=== PATIENT | male | born 1965 | race Caucasian/White ===

== ENCOUNTER 2019-02-11 13:44 | Inpatient (IN) | payer MEDICAID, OTHER ==
[2019-02-11] MEDS: HYDROmorphONE 0.5 MG/0.5 ML SYG IV (18:03)
[2019-02-11 18:04] LABS: ADD MAN DIFF? NO
[2019-02-11] MEDS: SOD CHLORIDE 0.9% 1,000 ML IV ×2 (18:04→19:34)
[2019-02-11 18:08] LABS: BASOPHIL # 0.1 10^3/ul (0.0-0.1); BASOPHILS % 0.4 % (0.0-2.0); EOSINOPHILS # 0.1 10^3/ul (0.0-0.5); EOSINOPHILS % 1.1 % (0.0-7.0); HEMATOCRIT 39.1 % (42.0-52.0); HEMOGLOBIN 13.4 g/dl (14.0-18.0); LYMPHOCYTES # 1.5 10^3/ul (0.8-2.9); LYMPHOCYTES % 12.5 % (15.0-51.0); MEAN CORPUSCULAR HEMOGLOBIN 31.2 pg (29.0-33.0); MEAN CORPUSCULAR HGB CONC 34.3 g/dl (32.0-37.0); MEAN CORPUSCULAR VOLUME 90.9 fl (82.0-101.0); MEAN PLATELET VOLUME 9.1 fl (7.4-10.4); MONOCYTE # 1.3 10^3/ul (0.3-0.9); MONOCYTES % 11.5 % (0.0-11.0); NEUTROPHIL # 8.5 10^3/ul (1.6-7.5); NEUTROPHILS % 72.9 % (39.0-77.0); PLATELET COUNT 242 10^3/UL (140-415)
[2019-02-11 18:08] LABS: WHITE BLOOD COUNT 11.7 10^3/ul (4.8-10.8)
[2019-02-11 18:10] LABS: URINE BLOOD (Dip) POC 1+ (NEGATIVE); URINE GLUCOSE (Dip) POC Negative (NEGATIVE); URINE KETONES (Dip) POC Negative (NEGATIVE); URINE LEUKOCYTE EST (Dip) POC Negative (NEGATIVE); URINE NITRITE (Dip) POC Negative (NEGATIVE); URINE TOTAL PROTEIN POC Negative (NEGATIVE)
[2019-02-11 18:28] LABS: ALANINE AMINOTRANSFERASE 105 IU/L (13-69); ALBUMIN 4.1 g/dl (3.3-4.9); ALBUMIN/GLOBULIN RATIO 1.05; ALKALINE PHOSPHATASE 231 IU/L (42-121); ANION GAP 9 (5-13); ASPARTATE AMINO TRANSFERASE 70 IU/L (15-46); BILIRUBIN,INDIRECT 0.6 mg/dl (0-1.1); BILIRUBIN,TOTAL 0.6 mg/dl (0.2-1.3); BLOOD UREA NITROGEN 15 mg/dl (7-20); CALCIUM 9.9 mg/dl (8.4-10.2); CARBON DIOXIDE 27 mmol/L (21-31); CHLORIDE 102 mmol/L (97-110); CREATININE 0.98 mg/dl (0.61-1.24); Estimated GFR > 60 mL/min (>60); GLUCOSE 109 mg/dl (70-220); LIPASE 73 U/L (23-300); POTASSIUM 4.1 mmol/L (3.5-5.1); SODIUM 138 mmol/L (135-144)
[2019-02-11] MEDS: PIPER-TAZO 3.375 GM IV (PMX) 100 ML IVPB ×2 (18:41→23:07)
[2019-02-11] MEDS: ONDANSETRON 4 MG INJ IV (18:41)
[2019-02-11] MEDS ORDERED: NACL 0.9% 3 ML SYG IV (19:00)
[2019-02-11] MEDS: morphine 2 MG INJ IV ×2 (19:34→22:33)
[2019-02-12] MEDS: SOD CHLORIDE 0.9% 1,000 ML IV ×2 (02:38→21:49)
[2019-02-12] MEDS: morphine 4 MG/ML VIAL IV ×4 (02:40→16:41)
[2019-02-12 05:06] LABS: ADD MAN DIFF? NO
[2019-02-12 05:10] LABS: WHITE BLOOD COUNT 9.4 10^3/ul (4.8-10.8)
[2019-02-12 05:10] LABS: BASOPHILS % 0.3 % (0.0-2.0); EOSINOPHILS # 0.2 10^3/ul (0.0-0.5); EOSINOPHILS % 1.8 % (0.0-7.0); HEMATOCRIT 36.7 % (42.0-52.0); HEMOGLOBIN 12.5 g/dl (14.0-18.0); LYMPHOCYTES # 1.5 10^3/ul (0.8-2.9); LYMPHOCYTES % 15.8 % (15.0-51.0); MEAN CORPUSCULAR HEMOGLOBIN 30.6 pg (29.0-33.0); MEAN CORPUSCULAR HGB CONC 34.1 g/dl (32.0-37.0); MEAN PLATELET VOLUME 9.2 fl (7.4-10.4); MONOCYTE # 1.1 10^3/ul (0.3-0.9); MONOCYTES % 11.2 % (0.0-11.0); NEUTROPHIL # 6.5 10^3/ul (1.6-7.5); NEUTROPHILS % 69.2 % (39.0-77.0); PLATELET COUNT 257 10^3/UL (140-415); RED BLOOD COUNT 4.08 10^6/ul (4.70-6.10); RED CELL DISTRIBUTION WIDTH 13.2 % (11.5-14.5)
[2019-02-12] MEDS: PIPER-TAZO 3.375 GM IV (PMX) 100 ML IVPB ×4 (05:28→23:18)
[2019-02-12] MEDS: PANTOPRAZOLE 40 MG INJ IV (05:29)
[2019-02-12 05:31] LABS: ALANINE AMINOTRANSFERASE 104 IU/L (13-69); ALBUMIN 3.6 g/dl (3.3-4.9); ALBUMIN/GLOBULIN RATIO 1.05; ALKALINE PHOSPHATASE 207 IU/L (42-121); ANION GAP 7 (5-13); ASPARTATE AMINO TRANSFERASE 69 IU/L (15-46); BILIRUBIN,INDIRECT 0.6 mg/dl (0-1.1); BILIRUBIN,TOTAL 0.6 mg/dl (0.2-1.3); BLOOD UREA NITROGEN 13 mg/dl (7-20); CALCIUM 9.1 mg/dl (8.4-10.2); CARBON DIOXIDE 28 mmol/L (21-31); CHLORIDE 104 mmol/L (97-110); CHOLESTEROL 162 mg/dl (100-200); Estimated GFR > 60 mL/min (>60); GLUCOSE 102 mg/dl (70-220); HDL CHOLESTEROL 18 mg/dl (28-71); LDL CHOLESTEROL,CALCULATED 77 mg/dl; MAGNESIUM 2.1 mg/dl (1.7-2.5); POTASSIUM 4.5 mmol/L (3.5-5.1); SODIUM 139 mmol/L (135-144); TRIGLYCERIDES 337 mg/dl (0-149)
[2019-02-12] MEDS ORDERED: ETOMIDATE 20 MG INJ (17:59)
[2019-02-12] MEDS ORDERED: FENTAnyl 50 MCG/ML VIAL (17:59)
[2019-02-12] MEDS ORDERED: SUCCINYLCHOLINE CHLORIDE 100 MG/5 ML SYG IV (17:59)
[2019-02-12] MEDS ORDERED: HYDROmorphONE 2 MG/ML SYG (17:59)
[2019-02-12] MEDS ORDERED: ROCURONIUM 50 MG INJ (17:59)
[2019-02-12] MEDS ORDERED: PROPOFOL 200 MG INJ (18:00)
[2019-02-12] MEDS ORDERED: DESFLURANE 15 MIN (18:00)
[2019-02-12] MEDS ORDERED: CEFAZOLIN 1 GM INJ (18:00)
[2019-02-12] MEDS: BUPIVACAINE 0.25%/EPI (SDV) 10 ML INJ (18:24)
[2019-02-12] MEDS: LIDOCAINE 1% (MPF) 30 ML INJ (18:25)
[2019-02-12] MEDS ORDERED: IBUPROFEN 800 MG TAB PO (18:30)
[2019-02-12] MEDS ORDERED: ACETAMINOPHEN 325 MG TAB PO (18:30)
[2019-02-12] MEDS ORDERED: SUGAMMADEX SODIUM 200 MG/2 ML VIAL IV (18:47)
[2019-02-12] MEDS ORDERED: HYDROmorphONE 1 MG/5 ML IV SYRINGE IV ×2 (19:08→19:30)
[2019-02-12] MEDS: HYDROmorphONE 1 MG/5 ML IV SYRINGE IV ×4 (19:25→20:33)
[2019-02-12] MEDS ORDERED: EPHEDrine 25 MG/5 ML SYG IV (19:30)
[2019-02-12] MEDS ORDERED: LABETALOL HCL 20MG INJ IV (19:30)
[2019-02-12] MEDS ORDERED: hydrALAzine 20 MG INJ IV (19:30)
[2019-02-12] MEDS ORDERED: TRIMETHOBENZAMIDE 100 MG/ML VIAL IM (19:30)
[2019-02-12] MEDS ORDERED: FENTAnyl 50 MCG/ML VIAL IV ×2 (19:30)
[2019-02-12] MEDS ORDERED: MIDAZOLAM 1 MG/ML 2 ML INJ IV (19:30)
[2019-02-12] MEDS ORDERED: IPRATROPIUM (NEB) 0.5 MG/2.5 ML AMP HHN (19:30)
[2019-02-12] MEDS ORDERED: DIPHENHYDRAMINE 50 MG INJ IV (19:30)
[2019-02-12] MEDS ORDERED: ONDANSETRON 4 MG INJ IV (19:30)
[2019-02-12] MEDS ORDERED: ALBUTEROL 0.083% (NEB) 2.5 MG/3 ML AMP HHN (19:30)
[2019-02-12] MEDS ORDERED: MEPERIDINE 25 MG INJ IV (19:30)
[2019-02-12] MEDS ORDERED: OXYCODONE/ACETAMINOPHEN (5/325) TAB PO (19:30)
[2019-02-12] MEDS: FENTAnyl 50 MCG/ML VIAL IV ×2 (19:40→19:48)
[2019-02-12] MEDS: OXYCODONE/ACETAMINOPHEN (5/325) TAB PO (20:47)
[2019-02-12] MEDS: HYDROmorphONE 0.5 MG/0.5 ML SYG IV (21:52)
[2019-02-13] MEDS: PIPER-TAZO 3.375 GM IV (PMX) 100 ML IVPB ×4 (05:20→23:29)
[2019-02-13] MEDS: PANTOPRAZOLE 40 MG INJ IV ×2 (05:21→21:03)
[2019-02-13] MEDS: morphine 4 MG/ML VIAL IV ×4 (07:07→23:22)
[2019-02-13] MEDS: HYDROmorphONE 0.5 MG/0.5 ML SYG IV (14:03)
[2019-02-13 15:27] LABS: INR 1.03; PROTIME 13.6 Sec (11.9-14.9); PT RATIO 1.1
[2019-02-13] MEDS: SOD CHLORIDE 0.9% 1,000 ML IV (17:44)
[2019-02-14] MEDS: morphine 4 MG/ML VIAL IV ×4 (06:05→20:00)
[2019-02-14] MEDS: PIPER-TAZO 3.375 GM IV (PMX) 100 ML IVPB ×4 (06:05→23:05)
[2019-02-14 06:19] LABS: ADD MAN DIFF? NO; HAAIG REFLEX REFLEX FILED
[2019-02-14 06:33] LABS: BASOPHIL # 0.1 10^3/ul (0.0-0.1); BASOPHILS % 0.5 % (0.0-2.0); EOSINOPHILS # 0.1 10^3/ul (0.0-0.5); EOSINOPHILS % 1.1 % (0.0-7.0); HEMATOCRIT 39.4 % (42.0-52.0); HEMOGLOBIN 13.3 g/dl (14.0-18.0); LYMPHOCYTES # 1.6 10^3/ul (0.8-2.9); LYMPHOCYTES % 14.8 % (15.0-51.0); MEAN CORPUSCULAR HEMOGLOBIN 31.1 pg (29.0-33.0); MEAN CORPUSCULAR HGB CONC 33.8 g/dl (32.0-37.0); MEAN CORPUSCULAR VOLUME 92.1 fl (82.0-101.0); MEAN PLATELET VOLUME 8.9 fl (7.4-10.4); MONOCYTE # 0.8 10^3/ul (0.3-0.9); MONOCYTES % 7.3 % (0.0-11.0); NEUTROPHIL # 8.1 10^3/ul (1.6-7.5); NEUTROPHILS % 74.9 % (39.0-77.0); PLATELET COUNT 395 10^3/UL (140-415); RED BLOOD COUNT 4.28 10^6/ul (4.70-6.10); RED CELL DISTRIBUTION WIDTH 13.2 % (11.5-14.5)
[2019-02-14 06:33] LABS: WHITE BLOOD COUNT 10.7 10^3/ul (4.8-10.8)
[2019-02-14 06:41] LABS: INR 1.08; PROTIME 14.1 Sec (11.9-14.9); PT RATIO 1.1
[2019-02-14 06:42] LABS: PARTIAL THROMBOPLASTIN TIME 41.2 Sec (23.0-35.0)
[2019-02-14 06:57] LABS: ALANINE AMINOTRANSFERASE 99 IU/L (13-69); ALBUMIN/GLOBULIN RATIO 1.08; ALKALINE PHOSPHATASE 248 IU/L (42-121); ANION GAP 10 (5-13); ASPARTATE AMINO TRANSFERASE 58 IU/L (15-46); BILIRUBIN,INDIRECT 0.9 mg/dl (0-1.1); BILIRUBIN,TOTAL 0.9 mg/dl (0.2-1.3); BLOOD UREA NITROGEN 11 mg/dl (7-20); CALCIUM 9.6 mg/dl (8.4-10.2); CARBON DIOXIDE 29 mmol/L (21-31); CHLORIDE 101 mmol/L (97-110); CREATININE 0.97 mg/dl (0.61-1.24); Estimated GFR > 60 mL/min (>60); GLUCOSE 100 mg/dl (70-220); POTASSIUM 3.6 mmol/L (3.5-5.1); SODIUM 140 mmol/L (135-144); TOTAL PROTEIN 7.7 g/dl (6.1-8.1)
[2019-02-14 07:16] LABS: HEPATITIS B SURFACE ANTIGEN NEGATIVE (NEGATIVE)
[2019-02-14 07:34] LABS: HEPATITIS B CORE ANTIBODY NEGATIVE (NEGATIVE); HEPATITIS C VIRAL ANTIBODY NEGATIVE (NEGATIVE)
[2019-02-14] MEDS: PANTOPRAZOLE 40 MG INJ IV ×2 (08:15→20:00)
[2019-02-14] MEDS: SOD CHLORIDE 0.9% 1,000 ML IV (13:58)
[2019-02-15] MEDS: morphine 4 MG/ML VIAL IV ×4 (02:21→19:38)
[2019-02-15] MEDS: PIPER-TAZO 3.375 GM IV (PMX) 100 ML IVPB ×3 (05:12→17:35)
[2019-02-15 05:28] LABS: ADD MAN DIFF? NO
[2019-02-15 05:37] LABS: WHITE BLOOD COUNT 8.5 10^3/ul (4.8-10.8)
[2019-02-15 05:37] LABS: BASOPHIL # 0.1 10^3/ul (0.0-0.1); BASOPHILS % 0.6 % (0.0-2.0); EOSINOPHILS # 0.3 10^3/ul (0.0-0.5); EOSINOPHILS % 3.8 % (0.0-7.0); HEMATOCRIT 35.7 % (42.0-52.0); HEMOGLOBIN 11.8 g/dl (14.0-18.0); LYMPHOCYTES # 1.6 10^3/ul (0.8-2.9); LYMPHOCYTES % 19.2 % (15.0-51.0); MEAN CORPUSCULAR HEMOGLOBIN 30.3 pg (29.0-33.0); MEAN CORPUSCULAR HGB CONC 33.1 g/dl (32.0-37.0); MEAN CORPUSCULAR VOLUME 91.8 fl (82.0-101.0); MEAN PLATELET VOLUME 8.9 fl (7.4-10.4); MONOCYTE # 0.7 10^3/ul (0.3-0.9); MONOCYTES % 8.4 % (0.0-11.0); NEUTROPHIL # 5.7 10^3/ul (1.6-7.5); NEUTROPHILS % 66.6 % (39.0-77.0); PLATELET COUNT 393 10^3/UL (140-415); RED BLOOD COUNT 3.89 10^6/ul (4.70-6.10); RED CELL DISTRIBUTION WIDTH 13.3 % (11.5-14.5)
[2019-02-15 06:09] LABS: ALANINE AMINOTRANSFERASE 91 IU/L (13-69); ALBUMIN 3.4 g/dl (3.3-4.9); ALBUMIN/GLOBULIN RATIO 1.09; ALKALINE PHOSPHATASE 180 IU/L (42-121); ANION GAP 7 (5-13); ASPARTATE AMINO TRANSFERASE 55 IU/L (15-46); BILIRUBIN,INDIRECT 0.6 mg/dl (0-1.1); BILIRUBIN,TOTAL 0.6 mg/dl (0.2-1.3); BLOOD UREA NITROGEN 10 mg/dl (7-20); CALCIUM 9.2 mg/dl (8.4-10.2); CARBON DIOXIDE 28 mmol/L (21-31); CHLORIDE 103 mmol/L (97-110); CREATININE 0.99 mg/dl (0.61-1.24); Estimated GFR > 60 mL/min (>60); GLUCOSE 97 mg/dl (70-220); POTASSIUM 3.6 mmol/L (3.5-5.1); SODIUM 138 mmol/L (135-144); TOTAL PROTEIN 6.5 g/dl (6.1-8.1)
[2019-02-15] MEDS: PANTOPRAZOLE 40 MG INJ IV ×2 (09:19→20:48)
[2019-02-15] MEDS: BARIUM SULFATE 0.1% 450 ML BTL (VOLUMEN) PO ×2 (09:39)
[2019-02-15] MEDS: SOD CHLORIDE 0.9% 100 ML (11:14)
[2019-02-15] MEDS: IOHEXOL 100 ML (11:14)
[2019-02-15 15:34] LABS: CARCINOEMBRYONIC ANTIGEN 1.5 ng/ml (0.0-5.0)
[2019-02-15 15:38] LABS: CANCER ANTIGEN 19-9 75.2 U/ml (0.0-37.0)
[2019-02-15] MEDS ORDERED: LOPERAMIDE 2 MG CAP PO (18:30)
[2019-02-16] MEDS: PIPER-TAZO 3.375 GM IV (PMX) 100 ML IVPB ×5 (00:02→23:31)
[2019-02-16] MEDS: morphine 4 MG/ML VIAL IV ×3 (02:51→21:04)
[2019-02-16 05:39] LABS: ADD MAN DIFF? NO
[2019-02-16 05:41] LABS: WHITE BLOOD COUNT 7.9 10^3/ul (4.8-10.8)
[2019-02-16 05:41] LABS: BASOPHILS % 0.5 % (0.0-2.0); EOSINOPHILS # 0.3 10^3/ul (0.0-0.5); EOSINOPHILS % 3.2 % (0.0-7.0); HEMATOCRIT 37.5 % (42.0-52.0); HEMOGLOBIN 12.5 g/dl (14.0-18.0); LYMPHOCYTES # 1.5 10^3/ul (0.8-2.9); LYMPHOCYTES % 18.7 % (15.0-51.0); MEAN CORPUSCULAR HEMOGLOBIN 30.5 pg (29.0-33.0); MEAN CORPUSCULAR HGB CONC 33.3 g/dl (32.0-37.0); MEAN CORPUSCULAR VOLUME 91.5 fl (82.0-101.0); MONOCYTE # 0.6 10^3/ul (0.3-0.9); MONOCYTES % 7.5 % (0.0-11.0); NEUTROPHIL # 5.4 10^3/ul (1.6-7.5); NEUTROPHILS % 68.8 % (39.0-77.0); PLATELET COUNT 473 10^3/UL (140-415); RED CELL DISTRIBUTION WIDTH 13.2 % (11.5-14.5)
[2019-02-16 06:08] LABS: ALANINE AMINOTRANSFERASE 78 IU/L (13-69); ALBUMIN 3.6 g/dl (3.3-4.9); ALBUMIN/GLOBULIN RATIO 1.16; ALKALINE PHOSPHATASE 161 IU/L (42-121); ANION GAP 7 (5-13); ASPARTATE AMINO TRANSFERASE 49 IU/L (15-46); BILIRUBIN,INDIRECT 0.6 mg/dl (0-1.1); BILIRUBIN,TOTAL 0.6 mg/dl (0.2-1.3); BLOOD UREA NITROGEN 11 mg/dl (7-20); CALCIUM 9.5 mg/dl (8.4-10.2); CARBON DIOXIDE 30 mmol/L (21-31); CHLORIDE 104 mmol/L (97-110); CREATININE 1.07 mg/dl (0.61-1.24); Estimated GFR > 60 mL/min (>60); GLUCOSE 96 mg/dl (70-220); POTASSIUM 4.2 mmol/L (3.5-5.1); SODIUM 141 mmol/L (135-144); TOTAL PROTEIN 6.7 g/dl (6.1-8.1)
[2019-02-16] MEDS: PANTOPRAZOLE 40 MG INJ IV ×2 (09:23→21:02)
[2019-02-16] MEDS: ONDANSETRON 4 MG INJ IV (13:15)
[2019-02-17] MEDS: PIPER-TAZO 3.375 GM IV (PMX) 100 ML IVPB ×4 (05:37→23:22)
[2019-02-17 06:05] LABS: ADD MAN DIFF? NO
[2019-02-17 06:20] LABS: BASOPHIL # 0.1 10^3/ul (0.0-0.1); BASOPHILS % 0.6 % (0.0-2.0); EOSINOPHILS # 0.3 10^3/ul (0.0-0.5); EOSINOPHILS % 3.6 % (0.0-7.0); HEMATOCRIT 37.5 % (42.0-52.0); HEMOGLOBIN 12.3 g/dl (14.0-18.0); LYMPHOCYTES # 1.6 10^3/ul (0.8-2.9); LYMPHOCYTES % 19.1 % (15.0-51.0); MEAN CORPUSCULAR HEMOGLOBIN 30.7 pg (29.0-33.0); MEAN CORPUSCULAR HGB CONC 32.8 g/dl (32.0-37.0); MEAN CORPUSCULAR VOLUME 93.5 fl (82.0-101.0); MONOCYTE # 0.6 10^3/ul (0.3-0.9); MONOCYTES % 6.8 % (0.0-11.0); NEUTROPHIL # 5.6 10^3/ul (1.6-7.5); PLATELET COUNT 554 10^3/UL (140-415); RED BLOOD COUNT 4.01 10^6/ul (4.70-6.10); RED CELL DISTRIBUTION WIDTH 13.2 % (11.5-14.5)
[2019-02-17 06:20] LABS: WHITE BLOOD COUNT 8.1 10^3/ul (4.8-10.8)
[2019-02-17 07:17] LABS: ALANINE AMINOTRANSFERASE 75 IU/L (13-69); ALBUMIN 3.6 g/dl (3.3-4.9); ALBUMIN/GLOBULIN RATIO 1.12; ALKALINE PHOSPHATASE 145 IU/L (42-121); ANION GAP 8 (5-13); ASPARTATE AMINO TRANSFERASE 37 IU/L (15-46); BILIRUBIN,INDIRECT 0.4 mg/dl (0-1.1); BILIRUBIN,TOTAL 0.4 mg/dl (0.2-1.3); BLOOD UREA NITROGEN 12 mg/dl (7-20); CALCIUM 9.5 mg/dl (8.4-10.2); CARBON DIOXIDE 29 mmol/L (21-31); CHLORIDE 104 mmol/L (97-110); CREATININE 1.03 mg/dl (0.61-1.24); Estimated GFR > 60 mL/min (>60); GLUCOSE 99 mg/dl (70-220); SODIUM 141 mmol/L (135-144); TOTAL PROTEIN 6.8 g/dl (6.1-8.1)
[2019-02-17] MEDS: PANTOPRAZOLE 40 MG INJ IV ×2 (09:16→21:31)
[2019-02-17] MEDS: HYDROCODONE/APAP (5/325) TAB PO (09:23)
[2019-02-17] MEDS: morphine 4 MG/ML VIAL IV (21:31)
[2019-02-18] MEDS: PIPER-TAZO 3.375 GM IV (PMX) 100 ML IVPB ×4 (05:20→23:52)
[2019-02-18 05:54] LABS: ALANINE AMINOTRANSFERASE 69 IU/L (13-69); ALBUMIN 3.6 g/dl (3.3-4.9); ALBUMIN/GLOBULIN RATIO 1.16; ALKALINE PHOSPHATASE 122 IU/L (42-121); ANION GAP 6 (5-13); ASPARTATE AMINO TRANSFERASE 41 IU/L (15-46); BILIRUBIN,INDIRECT 0.4 mg/dl (0-1.1); BILIRUBIN,TOTAL 0.4 mg/dl (0.2-1.3); BLOOD UREA NITROGEN 14 mg/dl (7-20); CALCIUM 9.2 mg/dl (8.4-10.2); CARBON DIOXIDE 28 mmol/L (21-31); CHLORIDE 106 mmol/L (97-110); CREATININE 1.07 mg/dl (0.61-1.24); Estimated GFR > 60 mL/min (>60); GLUCOSE 96 mg/dl (70-220); POTASSIUM 3.9 mmol/L (3.5-5.1); SODIUM 140 mmol/L (135-144); TOTAL PROTEIN 6.7 g/dl (6.1-8.1)
[2019-02-18] MEDS: PANTOPRAZOLE 40 MG INJ IV ×2 (08:40→21:24)
[2019-02-18] MEDS: HYDROCODONE/APAP (5/325) TAB PO (12:50)
[2019-02-18] MEDS: PROPOFOL 20 ML ×3 (15:24→16:46)
[2019-02-18] MEDS: HYDROCODONE/APAP (10/325) TAB PO (21:24)
[2019-02-19] MEDS: HYDROCODONE/APAP (10/325) TAB PO (04:31)
[2019-02-19 05:39] LABS: ADD MAN DIFF? NO
[2019-02-19] MEDS: PIPER-TAZO 3.375 GM IV (PMX) 100 ML IVPB (05:42)
[2019-02-19 05:48] LABS: BASOPHIL # 0.1 10^3/ul (0.0-0.1); BASOPHILS % 0.9 % (0.0-2.0); EOSINOPHILS # 0.3 10^3/ul (0.0-0.5); EOSINOPHILS % 3.6 % (0.0-7.0); HEMATOCRIT 43.2 % (42.0-52.0); HEMOGLOBIN 14.4 g/dl (14.0-18.0); LYMPHOCYTES # 2.3 10^3/ul (0.8-2.9); LYMPHOCYTES % 24.8 % (15.0-51.0); MEAN CORPUSCULAR HEMOGLOBIN 30.5 pg (29.0-33.0); MEAN CORPUSCULAR HGB CONC 33.3 g/dl (32.0-37.0); MEAN CORPUSCULAR VOLUME 91.5 fl (82.0-101.0); MONOCYTE # 0.7 10^3/ul (0.3-0.9); MONOCYTES % 7.5 % (0.0-11.0); NEUTROPHIL # 5.9 10^3/ul (1.6-7.5); NEUTROPHILS % 62.7 % (39.0-77.0); PLATELET COUNT 705 10^3/UL (140-415); RED BLOOD COUNT 4.72 10^6/ul (4.70-6.10); RED CELL DISTRIBUTION WIDTH 13.1 % (11.5-14.5)
[2019-02-19 05:48] LABS: WHITE BLOOD COUNT 9.4 10^3/ul (4.8-10.8)
[2019-02-19 05:59] LABS: PATH REVIEW? YES
[2019-02-19 06:03] LABS: INR 1.02; PROTIME 13.5 Sec (11.9-14.9); PT RATIO 1.1
[2019-02-19 06:05] LABS: LIPASE 753 U/L (23-300); MAGNESIUM 2.2 mg/dl (1.7-2.5)
[2019-02-19 06:05] LABS: PHOSPHORUS 4.6 mg/dl (2.5-4.9)
[2019-02-19 06:15] LABS: ALANINE AMINOTRANSFERASE 80 IU/L (13-69); ALBUMIN 4.1 g/dl (3.3-4.9); ALBUMIN/GLOBULIN RATIO 1.13; ALKALINE PHOSPHATASE 149 IU/L (42-121); ANION GAP 10 (5-13); ASPARTATE AMINO TRANSFERASE 46 IU/L (15-46); BILIRUBIN,INDIRECT 0.5 mg/dl (0-1.1); BILIRUBIN,TOTAL 0.5 mg/dl (0.2-1.3); BLOOD UREA NITROGEN 14 mg/dl (7-20); CALCIUM 9.7 mg/dl (8.4-10.2); CARBON DIOXIDE 26 mmol/L (21-31); CHLORIDE 104 mmol/L (97-110); CREATININE 1.12 mg/dl (0.61-1.24); Estimated GFR > 60 mL/min (>60); GLUCOSE 97 mg/dl (70-220); SODIUM 140 mmol/L (135-144); TOTAL PROTEIN 7.7 g/dl (6.1-8.1)
[2019-02-19 06:41] LABS: THYROID STIMULATING HORMONE 0.833 MIU/L (0.465-4.680)
[2019-02-19] MEDS: PANTOPRAZOLE 40 MG INJ IV (08:22)
[2019-02-19] MEDS: ENOXAPARIN 40 MG/0.4 ML SYG SC (08:23)
[2019-02-19 09:58] LABS: BAND NEUTROPHILS % (M) 1 % (0-4); BASOPHIL #M 0.5 10^3/ul (0.0-0.0); BASOPHILS % (M) 6 % (0-2); BURR CELLS 1+ (0-0); EOSINOPHILS % (M) 1 % (0-7); LYMPHOCYTES #M 4.9 10^3/ul (0.8-2.9); LYMPHOCYTES % (M) 53 % (15-51); MONOCYTE #M 0.1 10^3/ul (0.3-0.9); MONOCYTES % (M) 2 % (0-11); PLATELET ESTIMATE INCREASED; POIKILOCYTOSIS 2+ (0-0); POLYCHROMASIA 1+ (0-0); REACTIVE LYMPHOCYTES #M 0.6 10^3/ul (0.0-0.0); REACTIVE LYMPHOCYTES% (M) 7 % (0-0); SEG NEUT #M 2.8 10^3/ul (1.6-7.5); SEGMENTED NEUTROPHILS (M) % 30 % (39-77); SMUDGE%M 11 % (0-0)
[2019-02-19] MEDS: metroNIDAZOLE 500 MG TAB PO (13:31)
[2019-02-19] MEDS: CIPROFLOXACIN 500 MG TAB PO (17:32)
== END 2019-02-19 18:03 | disposition home or self-care (01) | DRG 425 ==
LOC: E/R 13:44 → MS3 18:36
PROC: 0DNU4ZZ Release Omentum, Percutaneous Endoscopic Approach (ICD-10-PCS; principal; 2019-02-12 17:54)
PROC: 0DB98ZX Excision of Duodenum, Via Natural or Artificial Opening Endoscopic, Diagnostic (ICD-10-PCS; 2019-02-12 17:54)
DX: K80.00 Calculus of gallbladder with acute cholecystitis without obstruction (principal); K76.89 Other specified diseases of liver; K31.4 Gastric diverticulum; N40.0 Benign prostatic hyperplasia without lower urinary tract symptoms; D64.9 Anemia, unspecified; R97.8 Other abnormal tumor markers; E78.1 Pure hyperglyceridemia; Z79.1 Long term (current) use of non-steroidal anti-inflammatories (NSAID)
CPT/HCPCS: 36415; 74177; 74181; 76705; 80053; 80061; 81003; 82378; 83036; 83690; 83735; 84100; 84443; 85025; 85610; 85730; 86301; 86704; 86709; 86803; 87045; 87205; 87340; 88305; 93970; 96374; 99285-25

== ENCOUNTER 2019-03-03 08:06 | Emergency (ER) | payer MEDICAID ==
[2019-03-03] MEDS: hydrOXYzine HCL 25 MG TAB PO (08:47)
[2019-03-03] MEDS: DEXAMETHASONE 4 MG TAB PO (08:47)
== END 2019-03-03 08:50 | disposition home or self-care (01) ==
LOC: FTE 08:06
DX: L30.9 Dermatitis, unspecified (principal); Z87.891 Personal history of nicotine dependence
CPT/HCPCS: 99283; Z7502